=== PATIENT | female | born 1995 | race Caucasian/White ===

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

== ENCOUNTER 2018-02-17 08:16 | Emergency (ER) | payer OTHER ==
[~2018-02-17] VITALS: Ht 160 cm; Wt 62.1 kg
[2018-02-17 08:22] VITALS: BP 130/80
[2018-02-17] MEDS: hydrOXYzine HCL 25 MG TAB PO ONE (08:41)
[2018-02-17] MEDS: NEOMYCIN/POLYMYXIN/BACITRACIN 0.9 GM/1 PKT TP ONE (08:41)
[2018-02-17] MEDS: IBUPROFEN 600 MG TAB PO ONE (08:41)
[2018-02-17 09:24] VITALS: BP 130/80
== END 2018-02-17 09:25 | disposition home or self-care (01) ==
LOC: MED 08:16
DX: S90.821A Blister (nonthermal), right foot, initial encounter (principal); X58.XXXA Exposure to other specified factors, initial encounter; Y93.89 Activity, other specified; Y92.89 Other specified places as the place of occurrence of the external cause; Y99.8 Other external cause status
CPT/HCPCS: 90471; 90715; 99284

== ENCOUNTER 2018-11-11 20:44 | Emergency (ER) | payer OTHER ==
[~2018-11-11] VITALS: Ht 160 cm; Wt 94.8 kg
[2018-11-11 20:50] VITALS: BP 146/91
--- NOTE | 2018-11-11 22:47 | NUR ---
PT CAME TO ER C/O OF RASH SINCE SUNDAY. PER PT RASH STARTED IN INNER THIGHS AND SPREAD TO BACK OF LEGS. PT ALSO HAS RASH ON CHEST. PT HAS BEEN APPLYING CALADRYL LOTION TO RASH. PER PT NO PAIN 0/10 AND NO ITCHING. PT DENIED ANY CHANGES TO ENVIRONMENT. SAFETY MEASURES IN PLACE. WAITING FOR ERMD TO EVALUATE PT.
[2018-11-12 00:26] LABS: APPEARANCE,URINE CLOUDY (CLEAR); BILIRUBIN,URINE NEGATIVE (NEGATIVE); BLOOD, URINE TRACE-I (NEGATIVE); COLOR,URINE YELLOW (YELLOW); LEUKOCYTE ESTERASE ,URINE 3+ (NEGATIVE); NITRITE, URINE POSITIVE (NEGATIVE); UGLUCOSE NEGATIVE (NEGATIVE)
[2018-11-12 00:33] LABS: WBC,URINE TOO MANY TO COUNT /HPF (0-5)
[2018-11-12 01:27] VITALS: BP 122/68
--- NOTE | 2018-11-12 01:27 | NUR ---
DISCHARGE PAPERS GIVEN TO PT. RX OF HYDROCORTISONE, MACROBID, AND DIPHENHYDRAMINE GIVEN. SIDE EFFECTS EXPLAINED. INSTRUCTED TO F/U WITH PEDIATRITIAN, PIMARY CARE PROVIDER, AND WHEN TO RETURN TO ER. PT STATES NO COMPLAINTS AT THIS TIME. PT VERBALLIZED UNDERSTANDING OF DC INSTRUCTIONS. ALL QUESTIONS ANSWERED.
== END 2018-11-12 01:27 | disposition home or self-care (01) ==
LOC: MED 20:44
DX: O99.73 Diseases of the skin and subcutaneous tissue complicating the puerperium (principal); O86.20 Urinary tract infection following delivery, unspecified; L25.9 Unspecified contact dermatitis, unspecified cause
CPT/HCPCS: 81001; 81025; 87086; 87186; 99283

== ENCOUNTER 2019-02-14 09:38 | Emergency (ER) | payer OTHER ==
[~2019-02-14] VITALS: Ht 162.6 cm; Wt 64.4 kg
[2019-02-14 09:45] VITALS: BP 156/76
--- NOTE | 2019-02-14 09:46 | NUR ---
MOTHER IN BED 11 WITH CHILD
--- NOTE | 2019-02-14 09:50 | NUR ---
23/F BIBS. PRESENTED WITH COUGH, RUNNY NOSE X2. PT'S LUNGS ARE CLEAR, NO FEVER, NO CHILLS NO N/V REPORTED. PRODUCTIVE MOIST COUGH. NO ALCOHOL OR DRUGS. VSS. 3 MONTH OLD AT BEDSIDE. PMHX: DENIES RX:DENIES
[2019-02-14 10:09] VITALS: BP 156/76
--- NOTE | 2019-02-14 10:09 | NUR ---
Patient discharged with v/s stable. Written and verbal after care instructions given and explained. Patient alert, oriented and verbalized understanding of instructions. Ambulatory with steady gait. All questions addressed prior to discharge. ID band removed. Patient advised to follow up with PMD. Rx of MOTRIN AND ACETAMINOPHEN given. Patient educated on indication of medication including possible reaction and side effects. Opportunity to ask questions provided and answered.
== END 2019-02-14 10:09 | disposition home or self-care (01) ==
LOC: MED 09:38
DX: J06.9 Acute upper respiratory infection, unspecified (principal)
CPT/HCPCS: 99282

== ENCOUNTER 2022-10-18 04:30 | Emergency (ER) | payer OTHER ==
[~2022-10-18] VITALS: Ht 160 cm; Wt 89.8 kg
[2022-10-18 04:40] VITALS: BP 137/84; PULSE 77; RESP 16; TEMP 97.6; O2SAT 98
--- NOTE | 2022-10-18 04:40 | NUR ---
to bed ambulatory
[2022-10-18 04:50] VITALS: O2SAT 98
--- NOTE | 2022-10-18 04:51 | NUR ---
RECEIVED IN BED 12 WITH C/O BILADERAL FLANK PAIN X 2 HOURS. UNABLE TO GIVE UA AT THIS TIME
--- NOTE | 2022-10-18 05:05 | NUR ---
LABS DRAWN AND SENT TO LAB. PT STILL UNABLE TO PROVIDE URINE.
[2022-10-18 05:23] LABS: BASOPHILS # (AUTO) 0.1 K/uL (0.00-0.22); BASOPHILS % (AUTO) 0.5 % (0.0-2.0); EOSINOPHILS # (AUTO) 0.2 K/uL (0-0.4); EOSINOPHILS % (AUTO) 1.5 % (0.0-4.0); HEMATOCRIT 41.1 % (36-48); HEMOGLOBIN 13.6 g/dL (12.0-16.0); LYMPHOCYTES # (AUTO) 3.1 K/uL (2.5-16.5); LYMPHOCYTES % (AUTO) 25.3 % (20.5-51.1); MEAN CORPUSCULAR HEMOGLOBIN 28 pg (27-31); MEAN CORPUSCULAR HGB CONC 33 g/dL (33-37); MONOCYTES # (AUTO) 0.7 K/uL (0.8-1.0); MONOCYTES % (AUTO) 5.9 % (1.7-9.3); NEUTROPHILS # (AUTO) 8.3 K/uL (1.8-7.7); NEUTROPHILS % (AUTO) 66.8 % (42.2-75.2); PLATELET COUNT (AUTO) 333 K/uL (140-450); RED CELL DISTRIBUTION WIDTH 13.5 % (11.6-13.7); WHITE BLOOD COUNT (AUTO) 12.4 K/uL (4.8-10.8)
[2022-10-18 05:59] LABS: ALBUMIN 3.7 g/dL (3.4-5.0); ANION GAP 12.7 (8-16); CARBON DIOXIDE 27.9 mmol/L (21-32); CREATININE 0.8 mg/dL (0.6-1.3); POTASSIUM 3.6 mmol/L (3.5-5.1); TOTAL BILIRUBIN 0.1 mg/dL (0.0-1.0)
--- NOTE | 2022-10-18 05:59 | NUR ---
UA OBTAINED AND SENT TO LAB
[2022-10-18] MEDS ORDERED: FAMOTIDINE 20 MG TAB PO ONE (06:30)
[2022-10-18] MEDS ORDERED: ALUMINUM HYD/MAG/SIMETHICONE 30 ML UDC PO ONE (06:30)
[2022-10-18] MEDS ORDERED: ONDANSETRON 4 MG ODT PO ONE (06:30)
--- NOTE | 2022-10-18 06:41 | NUR ---
PT STATES"I'M JUST GOING TO LEAVE
[2022-10-18 07:44] LABS: APPEARANCE,URINE CLEAR (CLEAR); BILIRUBIN,URINE NEGATIVE (NEGATIVE); BLOOD, URINE NEGATIVE (NEGATIVE); COLOR,URINE YELLOW (YELLOW); LEUKOCYTE ESTERASE ,URINE 1+ (NEGATIVE); NITRITE, URINE NEGATIVE (NEGATIVE); UGLUCOSE NEGATIVE (NEGATIVE)
[2022-10-18 08:22] LABS: RBC,URINE 0-5 /HPF (0-5)
[2022-10-18] MEDS ORDERED: IBUP-2213 PO (15:08)
== END 2022-10-18 06:41 | disposition left against medical advice (07) ==
LOC: MED 04:30
DX: K80.50 Calculus of bile duct without cholangitis or cholecystitis without obstruction (principal); F12.90 Cannabis use, unspecified, uncomplicated; Z79.899 Other long term (current) drug therapy
CPT/HCPCS: 36415; 80053; 81001; 81025; 83690; 85025; 87086; 99284; Q0162

== ENCOUNTER 2022-10-18 12:39 | Emergency (ER) | payer OTHER ==
[~2022-10-18] VITALS: Ht 167.6 cm; Wt 93.9 kg
[2022-10-18 13:06] VITALS: BP 165/104; PULSE 86; RESP 18; TEMP 98.1; O2SAT 98
--- NOTE | 2022-10-18 13:12 | NUR ---
PT AMBULATED TO BED 9 FROM [facility]
--- NOTE | 2022-10-18 13:30 | NUR ---
md at bedside assessing pt
[2022-10-18] MEDS ORDERED: MORPHINE SULFATE 4 MG/ML SYR IVP ONE (13:55)
[2022-10-18] MEDS ORDERED: ONDANSETRON 4 MG/2 ML VIAL IVP ONE (13:55)
[2022-10-18] MEDS ORDERED: KETOROLAC 15 MG/ML VIAL IVP ONE (13:55)
--- NOTE | 2022-10-18 14:00 | NUR ---
Ultrasound at bedside.
[2022-10-18 14:16] LABS: BASOPHILS # (AUTO) 0.1 K/uL (0.00-0.22); BASOPHILS % (AUTO) 0.5 % (0.0-2.0); EOSINOPHILS # (AUTO) 0.1 K/uL (0-0.4); EOSINOPHILS % (AUTO) 1.1 % (0.0-4.0); HEMOGLOBIN 13.1 g/dL (12.0-16.0); LYMPHOCYTES # (AUTO) 2.1 K/uL (2.5-16.5); LYMPHOCYTES % (AUTO) 18.1 % (20.5-51.1); MEAN CORPUSCULAR HEMOGLOBIN 28 pg (27-31); MEAN CORPUSCULAR HGB CONC 34 g/dL (33-37); MEAN CORPUSCULAR VOLUME 83.5 fL (80-94); MONOCYTES # (AUTO) 0.5 K/uL (0.8-1.0); MONOCYTES % (AUTO) 4.5 % (1.7-9.3); NEUTROPHILS # (AUTO) 8.7 K/uL (1.8-7.7); NEUTROPHILS % (AUTO) 75.8 % (42.2-75.2); PLATELET COUNT (AUTO) 315 K/uL (140-450); RED BLOOD CELL COUNT(AUTO) 4.67 MIL/uL (4.20-5.40); RED CELL DISTRIBUTION WIDTH 13.5 % (11.6-13.7); WHITE BLOOD COUNT (AUTO) 11.4 K/uL (4.8-10.8)
--- NOTE | 2022-10-18 14:31 | NUR ---
pt medicated per MD orders. NKA verbalized. ASHWINR
[2022-10-18 14:34] LABS: ALBUMIN 3.7 g/dL (3.4-5.0); CREATININE 0.8 mg/dL (0.6-1.3); TOTAL BILIRUBIN 0.1 mg/dL (0.0-1.0)
[2022-10-18] MEDS ORDERED: IBUP-2213 PO (15:08)
--- NOTE | 2022-10-18 15:20 | NUR ---
IV removed, catheter intact and site benign. Applied folded 4x4 gauze and tape to stop bleeding.
[2022-10-18 15:35] VITALS: BP 165/104; PULSE 86; RESP 18; TEMP 98.1; O2SAT 98
== END 2022-10-18 15:30 | disposition home or self-care (01) ==
LOC: MED 12:39
DX: K80.50 Calculus of bile duct without cholangitis or cholecystitis without obstruction (principal); F12.90 Cannabis use, unspecified, uncomplicated; Z79.899 Other long term (current) drug therapy
CPT/HCPCS: 36415; 76705; 80053; 83690; 85025; 96374; 96375; 99285; J1885; J2270; J2405; Q0092

== ENCOUNTER 2022-10-20 15:30 | Inpatient (IN) | payer OTHER ==
[~2022-10-20] VITALS: Ht 160 cm; Wt 90.7 kg
[~2022-10-20 15:30] MED LIST: IBUP-2213 PO
[2022-10-20 15:38] VITALS: BP 131/80; PULSE 95; RESP 20; TEMP 99.1; O2SAT 100
--- NOTE | 2022-10-20 15:52 | NUR ---
PT AMBULATED TO BED 12
--- NOTE | 2022-10-20 16:07 | NUR ---
MED STUDENT YURIDIA AT BS EVALUATING PT.
[2022-10-20] MEDS ORDERED: MORPHINE SULFATE 4 MG/ML SYR IVP ONE ×2 (16:25)
[2022-10-20] MEDS ORDERED: NACL 0.9% 1,000 ML IV ONE (16:25)
[2022-10-20] MEDS ORDERED: ONDANSETRON 4 MG/2 ML VIAL IVP ONE ×2 (16:25)
[2022-10-20 17:25] LABS: HEMATOCRIT 40.3 % (36-48); HEMOGLOBIN 13.4 g/dL (12.0-16.0); MEAN CORPUSCULAR HEMOGLOBIN 28 pg (27-31); MEAN CORPUSCULAR HGB CONC 33 g/dL (33-37); MEAN CORPUSCULAR VOLUME 83.8 fL (80-94); PLATELET COUNT (AUTO) 291 K/uL (140-450); RED CELL DISTRIBUTION WIDTH 13.7 % (11.6-13.7); WHITE BLOOD COUNT (AUTO) 11.3 K/uL (4.8-10.8)
[2022-10-20 17:45] LABS: BASOPHILS % (MANUAL) 0 % (0-2); EOSINOPHILS % (MANUAL) 0 % (0-4); LYMPHOCYTES % (MANUAL) 4 % (20-46); MONOCYTES % (MANUAL) 4 % (5-12)
[2022-10-20 17:53] LABS: ALBUMIN 3.4 g/dL (3.4-5.0); CARBON DIOXIDE 25.7 mmol/L (21-32); CREATININE 0.7 mg/dL (0.6-1.3); POTASSIUM 3.7 mmol/L (3.5-5.1); TOTAL BILIRUBIN 0.6 mg/dL (0.0-1.0)
[2022-10-20] MEDS ORDERED: PIPERACILLIN/TAZOBACTAM 3.375 GM in DEXTROSE 5% 50 ML IV ONE (18:35)
--- NOTE | 2022-10-20 19:17 | NUR ---
AFRICA GUO FROM [facility] CALLED FOR UPDATED CLINICAL INFORMATION. INFORMED OF PT STATUS.
[2022-10-20] MEDS ORDERED: PIPERACILLIN/TAZOBACTAM 3.375 GM VIAL IV ONE (19:19)
--- NOTE | 2022-10-20 19:45 | NUR ---
ASSUMED CARE OF PT AT THIS TIME. PT IN POSITION OF COMFORT. PT UPDATED ON POC. AWAITING ADMISSION. PT A&OX4, RR EVEN AND UNLABORED. FAMILY AT BEDSIDE.
[2022-10-20] MEDS ORDERED: ONDANSETRON 4 MG/2 ML VIAL IVP PRN (20:20)
[2022-10-20] MEDS ORDERED: HYDROcodone/APAP 5/325 MG 1 TAB TAB PO PRN (20:20)
[2022-10-20] MEDS ORDERED: ACETAMINOPHEN 325 MG TAB PO PRN (20:20)
[2022-10-20] MEDS ORDERED: KCL 20 MEQ IN 100 mL PREMIX 200 ML IV PRN (20:20)
[2022-10-20] MEDS ORDERED: MORPHINE SULFATE 4 MG/ML SYR IVP PRN (20:20)
[2022-10-20] MEDS ORDERED: MAG SULF 2000 MG/WATER PREMIX 50 ML IV PRN (20:20)
[2022-10-20] MEDS ORDERED: LORazepam 1 MG TAB PO PRN (20:20)
[2022-10-20] MEDS ORDERED: MAGNESIUM OXIDE 400 MG TAB PO PRN (20:20)
[2022-10-20] MEDS ORDERED: POTASSIUM CHLORIDE 10 MEQ TABER PO PRN (20:20)
--- NOTE | 2022-10-20 20:47 | NUR ---
REPORT CALLED TO KAUSHAL MCCARTNEY WITH FULL RETURNED VERBAL UNDERSTANDING. PT GOING TO 124B
[2022-10-20 21:06] VITALS: PULSE 90; RESP 18; O2SAT 98
--- NOTE | 2022-10-20 21:06 | NUR ---
PT WAS ADMITTED TO [facility] DEPARTMENT FROM ER THRU [facility] WITH DIAGNOSIS OF ACUTE CHOLECYSTITIS. PT IS AOX4, AMBULATORY, ABLE TO VERBALIZE NEEDS AND ABLE TO FOLLOW COMMANDS. PT IS ON ROOM AIR AND ON NPO DIET. PT HAS IV PN LEFT AC GAUGE 20, SALINE LOCK. PT SKIN IS INTACT. PT DENIES PAIN AT THIS TIME. NO S/S OF RESPIRATORY DISTRESS NOTED. PT WAS ORIENTED TO ROOM/HOSPITAL, BED BUTTON AND CALL LIGHT. ALL SAFETY MEASURES IMPLEMENTED. BED IN LOW POSITION, BED WHEELS ON LOCK AND CALL LIGHT WITHIN REACH.
[2022-10-20] MEDS: DEXT 5% /NACL 0.9% 1,000 ML IV SCH (22:00)
[2022-10-20] MEDS: ZOLPIDEM 5 MG TAB PO PRN (22:03)
--- NOTE | 2022-10-20 22:03 | NUR ---
ALL SCHEDULED AND PRESCRIBED MEDICATION WAS GIVEN TO PT PER MD ORDER. PRN PAIN MEDICATION WAS ALSO GIVEN WITH STEPHANE. ALL SAFETY MEASURES IMPLEMENTED. BED IN LOW POSITION, BED WHEELS ON LOCK AND CALL LIGHT WITHIN REACH.
[2022-10-21] MEDS ORDERED: PIPERACILLIN/TAZOBACTAM 3.375 GM VIAL IV ONE ×2 (00:03→05:03)
[2022-10-21] MEDS: PIPERACILLIN/TAZOBACTAM 3.375 GM in DEXTROSE 5% 50 ML IV SCH ×4 (00:08→18:44)
--- NOTE | 2022-10-21 00:08 | NUR ---
SCHEDULED AND PRESCRIBED MEDICATION WAS GIVEN TO PT PER MD ORDER. ALL SAFETY MEASURES IMPLEMENTED. BED IN LOW POSITION, BED WHEELS ON LOCK AND CALL LIGHT WITHIN REACH.
--- NOTE | 2022-10-21 02:00 | NUR ---
PT IS ON SLEEP. CHEST RISE AND FALL SYMMETRICALLY NOTED. RESPIRATION IS EVEN AND UNLABORED. ALL SAFETY MEASURES IMPLEMENTED. BED IN LOW POSITION, BED WHEELS ON LOCK AND CALL LIGHT WITHIN REACH.
[2022-10-21 04:00] VITALS: BP 117/78; PULSE 74; RESP 18; TEMP 97.2; O2SAT 97
--- NOTE | 2022-10-21 04:00 | NUR ---
CHECKED THE PT, STILL ON SLEEP. CHEST RISE AND FALL SYMMETRICALLY NOTED. RESPIRATION IS EVEN AND UNLABORED. ALL SAFETY MEASURES IMPLEMENTED. BED WHEELS ON LOCK, BED IN LOW POSITION AND CALL LIGHT WITHIN REACH.
--- NOTE | 2022-10-21 05:14 | NUR ---
SCHEDULED AND PRESCRIBED MEDICATION WAS GIVEN TO PT PER MD ORDER. ALL SAFETY MEASURES IMPLEMENTED. BED WHEELS ON LOCK, BED IN LOW POSITION AND CALL LIGHT WITHIN REACH.
[2022-10-21 05:31] LABS: BASOPHILS % (AUTO) 0.2 % (0.0-2.0); EOSINOPHILS % (AUTO) 0.7 % (0.0-4.0); HEMATOCRIT 35.6 % (36-48); HEMOGLOBIN 12.2 g/dL (12.0-16.0); LYMPHOCYTES # (AUTO) 1.4 K/uL (2.5-16.5); LYMPHOCYTES % (AUTO) 17.9 % (20.5-51.1); MEAN CORPUSCULAR HEMOGLOBIN 29 pg (27-31); MEAN CORPUSCULAR HGB CONC 34 g/dL (33-37); MEAN CORPUSCULAR VOLUME 83.5 fL (80-94); MONOCYTES # (AUTO) 0.5 K/uL (0.8-1.0); MONOCYTES % (AUTO) 6.6 % (1.7-9.3); NEUTROPHILS # (AUTO) 5.7 K/uL (1.8-7.7); NEUTROPHILS % (AUTO) 74.6 % (42.2-75.2); PLATELET COUNT (AUTO) 241 K/uL (140-450); RED BLOOD CELL COUNT(AUTO) 4.26 MIL/uL (4.20-5.40); RED CELL DISTRIBUTION WIDTH 13.4 % (11.6-13.7); WHITE BLOOD COUNT (AUTO) 7.6 K/uL (4.8-10.8)
[2022-10-21 06:30] LABS: APPEARANCE,URINE HAZY (CLEAR); BILIRUBIN,URINE NEGATIVE (NEGATIVE); BLOOD, URINE NEGATIVE (NEGATIVE); COLOR,URINE YELLOW (YELLOW); LEUKOCYTE ESTERASE ,URINE TRACE (NEGATIVE); NITRITE, URINE NEGATIVE (NEGATIVE); UGLUCOSE NEGATIVE (NEGATIVE)
[2022-10-21 06:38] LABS: ALBUMIN 2.7 g/dL (3.4-5.0); ANION GAP 10.7 (8-16); CARBON DIOXIDE 26.2 mmol/L (21-32); MAGNESIUM 1.8 mg/dL (1.8-2.4); TOTAL BILIRUBIN 0.4 mg/dL (0.0-1.0)
[2022-10-21 07:10] LABS: RBC,URINE 0-5 /HPF (0-5)
[2022-10-21 07:10] LABS: CREATININE 0.8 mg/dL (0.6-1.3)
--- NOTE | 2022-10-21 07:10 | NUR ---
PT IS STABLE. ENDORSED PT TO MORNING SHIFT FOR CONTINUITY OF CARE.
[2022-10-21 07:11] LABS: YEAST,URINE Rare /HPF (None Seen)
[2022-10-21 07:13] LABS: POTASSIUM 2.9 mmol/L (3.5-5.1)
[2022-10-21 08:00] VITALS: BP 119/66; PULSE 57; PULSE 71; RESP 18; TEMP 97.6; O2SAT 99
[2022-10-21] MEDS: ZOLPIDEM 5 MG TAB PO PRN (11:26)
[2022-10-21] MEDS: DEXT 5% /NACL 0.9% 1,000 ML IV SCH ×2 (11:33→22:06)
[2022-10-21] MEDS ORDERED: FLUCONAZOLE 100 MG TAB PO SCH (14:19)
--- NOTE | 2022-10-21 18:00 | NUR ---
PT IS STILL AWAITING FOR HIDA SCAN.
--- NOTE | 2022-10-21 19:25 | NUR ---
ENDORSED TO NIGHT NURSE FOR CONTINUITY OF CARE. PT IS STILL AWAITING HIDA SCAN. PT IS AWAKE, PARTNER AT BEDSIDE, NO SIGNS OF DISTRESS. CALL LIGHT WITHIN REACH.
--- NOTE | 2022-10-21 19:26 | NUR ---
RECEIVED PT FROM MORNING SHIFT NURSE. PT IS AOX4, AMBULATORY, ABLE TO VERBALIZE NEEDS AND ABLE TO FOLLOW COMMANDS. PT IS ON ROOM AIR AND ON NPO DIET. PT HAS IV ON RIGHT AC GAUGE 20 RUNNING WITH D5NS AT 80 ML/HR. PT SKIN IS INTACT. NO COMPLAIN OF PAIN. NO S/S OF RESPIRATORY DISTRESS NOTED. ALL SAFETY MEASURES IMPLEMENTED. BED IN LOW POSITION, BED WHEELS ON LOCK AND CALL LIGHT WITHIN REACH.
[2022-10-21 20:00] VITALS: BP 133/88; PULSE 70; RESP 18; TEMP 97.6; O2SAT 99
--- NOTE | 2022-10-21 20:20 | NUR ---
PT WAS PICK-UP FOR THE HIDA SCAN. PT WAS ALSO MOVED TO ROOM 104B FOR THE ISOLATION/RADIATION DUE TO HIDA SCAN WITH ALL THE BELONGINGS.
--- NOTE | 2022-10-21 21:50 | NUR ---
PUT CAME BACK TO THE UNIT IN ROOM 104B AFTER DOING OF HIDA SCAN. NO COMPLAIN OF PAIN AND NO S/S OF RESPIRATORY DISTRESS NOTED. ALL SAFETY MEASURES IMPLEMENTED. BED IN LOW POSITION, BED WHEELS ON LOCK AND CALL LIGHT WITHIN REACH.
--- NOTE | 2022-10-21 22:05 | NUR ---
SCHEDULED AND PRESCRIBED MEDICATION WAS GIVEN TO PT PER MD ORDER. PT WAS ALSO GIVE K-RIDER DUE TO K LEVEL OF 2.9 ALL SAFETY MEASURES IMPLEMENTED. BED IN LOW POSITION, BED WHEELS ON LOCK AND CALL LIGHT WITHIN REACH.
[2022-10-22] MEDS: PIPERACILLIN/TAZOBACTAM 3.375 GM in DEXTROSE 5% 50 ML IV SCH ×3 (00:11→12:23)
--- NOTE | 2022-10-22 00:11 | NUR ---
SCHEDULED AND PRESCRIBED MEDICATION WAS GIVEN TO PT PER MD ORDER. ALL SAFETY MEASURES IMPLEMENTED. BED WHEELS ON LOCK AND CALL LIGHT WITHIN REACH.
--- NOTE | 2022-10-22 02:00 | NUR ---
PT IS ON SLEEP. CHEST RISE AND FALL SYMMETRICALLY NOTED. RESPIRATION IS EVEN AND UNLABORED. ALL SAFETY MEASURES IMPLEMENTED. BED IN LOW POSITON, BED WHEELS ON LOCK AND CALL LIGHT WITHIN REACH.
--- NOTE | 2022-10-22 04:00 | NUR ---
CHECKED THE PT, STILL ON SLEEP. CHEST RISE AND FALL SYMMETRICALLY NOTED. RESPIRATION IS EVEN AND UNLABORED. ALL SAFETY MEASURES IMPLEMENTED. BED IN LOW POSITION, BED WHEELS ON LOCK AND CALL LIGHT WITHIN REACH.
[2022-10-22 06:20] LABS: BASOPHILS % (AUTO) 0.3 % (0.0-2.0); EOSINOPHILS # (AUTO) 0.1 K/uL (0-0.4); EOSINOPHILS % (AUTO) 1.6 % (0.0-4.0); HEMATOCRIT 34.7 % (36-48); LYMPHOCYTES % (AUTO) 31.7 % (20.5-51.1); MEAN CORPUSCULAR HEMOGLOBIN 29 pg (27-31); MEAN CORPUSCULAR HGB CONC 34 g/dL (33-37); MEAN CORPUSCULAR VOLUME 82.9 fL (80-94); MONOCYTES # (AUTO) 0.6 K/uL (0.8-1.0); MONOCYTES % (AUTO) 8.8 % (1.7-9.3); NEUTROPHILS # (AUTO) 3.6 K/uL (1.8-7.7); NEUTROPHILS % (AUTO) 57.6 % (42.2-75.2); PLATELET COUNT (AUTO) 266 K/uL (140-450); RED BLOOD CELL COUNT(AUTO) 4.19 MIL/uL (4.20-5.40); RED CELL DISTRIBUTION WIDTH 13.4 % (11.6-13.7); WHITE BLOOD COUNT (AUTO) 6.2 K/uL (4.8-10.8)
[2022-10-22 06:34] LABS: ALBUMIN 2.9 g/dL (3.4-5.0); ANION GAP 10.2 (8-16); CARBON DIOXIDE 26.2 mmol/L (21-32); CREATININE 0.7 mg/dL (0.6-1.3); MAGNESIUM 2.1 mg/dL (1.8-2.4); POTASSIUM 3.4 mmol/L (3.5-5.1); TOTAL BILIRUBIN 0.2 mg/dL (0.0-1.0)
--- NOTE | 2022-10-22 07:32 | NUR ---
PT IS STABLE. ENDORSED PT TO [facility] PT ASSIGNMENT FOR CONTINUITY OF CARE.
--- NOTE | 2022-10-22 07:35 | NUR ---
RCEIVED PATIENT FROM [facility] NURSE FOR CONTINUATION OF CARE. PATIENT SEEN, STABLE, NO RESPIRATORY DISTRESS NOTICED.
[2022-10-22 08:00] VITALS: BP 117/67; PULSE 66; RESP 17; TEMP 97.6; O2SAT 100
--- NOTE | 2022-10-22 09:00 | NUR ---
PATIENT HAS BEEN SCREENED AND CATEGORIZED LOW NUTRITION RISK. PATIENT WILL BE SEEN WITHIN 7 DAYS OF ADMISSION. 10/20/22-10/27/[address]
[2022-10-22] MEDS ORDERED: TRAM50TA3 PO (09:56)
[2022-10-22] MEDS: DEXT 5% /NACL 0.9% 1,000 ML IV SCH (12:24)
[2022-10-22 15:47] VITALS: BP 117/67; PULSE 66; RESP 17; TEMP 97.6
== END 2022-10-22 16:10 | disposition home or self-care (01) ==
LOC: MED 15:30 → MMU 20:24 → MTU 20:40
PROVIDERS: ADMIT Internal Medicine; ATTEND Internal Medicine
DX: K80.42 Calculus of bile duct with acute cholecystitis without obstruction (principal); R74.01 Elevation of levels of liver transaminase levels; Z20.822 Contact with and (suspected) exposure to COVID-19; Z79.1 Long term (current) use of non-steroidal anti-inflammatories (NSAID)
CPT/HCPCS: 36415; 76705; 78445; 80053; 81001; 83690; 83735; 85025; 86140; 87081; 96361; 96365; 96375; 99285; A9510; J1644; J2270; J2405; J2543; J3480; J7060; Q0092

== ENCOUNTER 2023-04-25 13:45 | Emergency (ER) | payer OTHER ==
[~2023-04-25] VITALS: Ht 160 cm; Wt 91.2 kg
[~2023-04-25 13:45] MED LIST changes: -IBUP-2213 PO; +TRAM50TA3 PO
[2023-04-25 13:51] VITALS: BP 148/98; PULSE 100; RESP 17; TEMP 99.1; O2SAT 97
[2023-04-25] MEDS ORDERED: NAPR-1704 PO (15:40)
[2023-04-25] MEDS ORDERED: KETOROLAC 30 MG/ML VIAL IM ONE (15:40)
== END 2023-04-25 16:35 | disposition home or self-care (01) ==
LOC: MED 13:45
DX: D16.22 Benign neoplasm of long bones of left lower limb (principal); Z79.899 Other long term (current) drug therapy; Z79.1 Long term (current) use of non-steroidal anti-inflammatories (NSAID)
CPT/HCPCS: 73562; 81025; 96372; 99283; J1885

== ENCOUNTER 2023-06-15 19:50 | Emergency (ER) | payer OTHER ==
[~2023-06-15] VITALS: Ht 160 cm; Wt 90.7 kg
[~2023-06-15 19:50] MED LIST changes: +NAPR-1704 PO
[2023-06-15 19:55] VITALS: BP 128/84; PULSE 94; RESP 17; TEMP 98.4; O2SAT 98
[2023-06-15 22:13] LABS: APPEARANCE,URINE HAZY (CLEAR); BILIRUBIN,URINE NEGATIVE (NEGATIVE); BLOOD, URINE NEGATIVE (NEGATIVE); COLOR,URINE YELLOW (YELLOW); LEUKOCYTE ESTERASE ,URINE NEGATIVE (NEGATIVE); NITRITE, URINE NEGATIVE (NEGATIVE); PH,URINE 6.5 (5.0-9.0); PROTEIN,URINE NEGATIVE (NEGATIVE); UGLUCOSE NEGATIVE (NEGATIVE)
[2023-06-15 22:38] LABS: BACTERIA,URINE 1+ /HPF (None Seen); MUCUS,URINE 1+ /LPF (None Seen); RBC,URINE 0-5 /HPF (0-5); WBC,URINE 0-5 /HPF (0-5)
[2023-06-15] MEDS ORDERED: NITR100C7 PO (22:43)
[2023-06-16] MEDS ORDERED: NAPR-54 PO (23:34)
[2023-06-16] MEDS ORDERED: BEN10 PO (23:34)
== END 2023-06-15 22:47 | disposition home or self-care (01) ==
LOC: MED 19:50
DX: N30.00 Acute cystitis without hematuria (principal); Z79.899 Other long term (current) drug therapy
CPT/HCPCS: 81001; 81025; 99283

== ENCOUNTER 2023-06-16 21:45 | Emergency (ER) | payer OTHER ==
[~2023-06-16] VITALS: Ht 160 cm; Wt 93.9 kg
[~2023-06-16 21:45] MED LIST changes: +NITR100C7 PO
[2023-06-16 21:55] VITALS: BP 137/81; PULSE 77; RESP 20; TEMP 101.4; O2SAT 98
[2023-06-16] MEDS: ONDANSETRON 4 MG/2 ML VIAL IVP ONE (22:38)
[2023-06-16] MEDS: KETOROLAC 30 MG/ML VIAL IVP ONE (22:40)
[2023-06-16 22:43] LABS: BASOPHILS % (AUTO) 0.5 % (0.0-2.0); EOSINOPHILS # (AUTO) 0.2 K/uL (0-0.4); EOSINOPHILS % (AUTO) 2.6 % (0.0-4.0); HEMATOCRIT 35.9 % (36-48); HEMOGLOBIN 12.4 g/dL (12.0-16.0); LYMPHOCYTES # (AUTO) 1.9 K/uL (2.5-16.5); LYMPHOCYTES % (AUTO) 23.2 % (20.5-51.1); MEAN CORPUSCULAR HEMOGLOBIN 28 pg (27-31); MEAN CORPUSCULAR HGB CONC 35 g/dL (33-37); MONOCYTES # (AUTO) 0.7 K/uL (0.8-1.0); MONOCYTES % (AUTO) 8.7 % (1.7-9.3); NEUTROPHILS # (AUTO) 5.4 K/uL (1.8-7.7); PLATELET COUNT (AUTO) 335 K/uL (140-450); RED BLOOD CELL COUNT(AUTO) 4.38 MIL/uL (4.20-5.40); RED CELL DISTRIBUTION WIDTH 13.1 % (11.6-13.7); WHITE BLOOD COUNT (AUTO) 8.2 K/uL (4.8-10.8)
[2023-06-16 22:53] LABS: ANION GAP 11.5 (8-16); CALCIUM 8.3 mg/dL (8.5-10.1); CARBON DIOXIDE 25.1 mmol/L (21-32); CREATININE 0.8 mg/dL (0.6-1.3); POTASSIUM 3.6 mmol/L (3.5-5.1)
[2023-06-16 23:05] LABS: APPEARANCE,URINE CLEAR (CLEAR); BILIRUBIN,URINE NEGATIVE (NEGATIVE); BLOOD, URINE TRACE-I (NEGATIVE); COLOR,URINE YELLOW (YELLOW); LEUKOCYTE ESTERASE ,URINE NEGATIVE (NEGATIVE); NITRITE, URINE NEGATIVE (NEGATIVE); PROTEIN,URINE NEGATIVE (NEGATIVE); UGLUCOSE NEGATIVE (NEGATIVE); UROBILINOGEN,URINE 0.2 EU/dL (0.2 - 1)
[2023-06-16 23:06] LABS: BILIRUBIN,DIRECT 0.1 mg/dL (0.0-0.3); TOTAL BILIRUBIN 0.2 mg/dL (0.0-1.0)
[2023-06-16 23:25] LABS: BACTERIA,URINE 1+ /HPF (None Seen); RBC,URINE 0-5 /HPF (0-5); WBC,URINE 0-5 /HPF (0-5)
[2023-06-16] MEDS ORDERED: BEN10 PO (23:34)
[2023-06-16] MEDS ORDERED: NAPR-54 PO (23:34)
[2023-06-16] MEDS ORDERED: cefTRIAXone 1,000 MG VIAL ONE (23:45)
[2023-06-17] MEDS: cefTRIAXone 1,000 MG VIAL ONE (00:07)
[2023-06-17 00:36] VITALS: BP 116/58; PULSE 89; RESP 17; TEMP 98.1; O2SAT 99
== END 2023-06-17 00:36 | disposition home or self-care (01) ==
LOC: MED 21:45
DX: R82.71 Bacteriuria (principal); R59.0 Localized enlarged lymph nodes; R50.9 Fever, unspecified; Z79.899 Other long term (current) drug therapy
CPT/HCPCS: 36415; 74176; 80048; 80076; 81001; 81025; 83690; 84703; 85025; 96365; 96375; 99285; J0696; J1885; J2405

== ENCOUNTER 2024-01-23 15:12 | Emergency (ER) | payer OTHER ==
[~2024-01-23] VITALS: Ht 160 cm; Wt 90.0 kg
[~2024-01-23 15:12] MED LIST changes: +BEN10 PO; +NAPR-337 PO
[2024-01-23 15:36] VITALS: BP 141/89; PULSE 93; RESP 20; TEMP 98.2; O2SAT 100
[2024-01-23 16:09] LABS: BASOPHILS % (AUTO) 0.3 % (0.0-2.0); EOSINOPHILS % (AUTO) 0.4 % (0.0-4.0); HEMATOCRIT 39.9 % (36-48); HEMOGLOBIN 13.3 g/dL (12.0-16.0); LYMPHOCYTES # (AUTO) 1.5 K/uL (2.5-16.5); LYMPHOCYTES % (AUTO) 12.6 % (20.5-51.1); MEAN CORPUSCULAR HEMOGLOBIN 27 pg (27-31); MEAN CORPUSCULAR HGB CONC 33 g/dL (33-37); MEAN CORPUSCULAR VOLUME 82.4 fL (80-94); MONOCYTES # (AUTO) 0.4 K/uL (0.8-1.0); MONOCYTES % (AUTO) 3.5 % (1.7-9.3); NEUTROPHILS # (AUTO) 10.1 K/uL (1.8-7.7); NEUTROPHILS % (AUTO) 83.2 % (42.2-75.2); PLATELET COUNT (AUTO) 343 K/uL (140-450); RED BLOOD CELL COUNT(AUTO) 4.84 MIL/uL (4.20-5.40); WHITE BLOOD COUNT (AUTO) 12.2 K/uL (4.8-10.8)
[2024-01-23 16:19] LABS: ANION GAP 11.9 (8-16); CALCIUM 8.6 mg/dL (8.5-10.1); CARBON DIOXIDE 28.8 mmol/L (21-32); CREATININE 0.9 mg/dL (0.6-1.3); POTASSIUM 3.7 mmol/L (3.5-5.1)
[2024-01-23] MEDS: NACL 0.9% 1,000 ML IV SCH (16:23)
[2024-01-23] MEDS: ONDANSETRON 4 MG/2 ML VIAL IVP ONE (16:24)
[2024-01-23 16:30] LABS: ALBUMIN 3.6 g/dL (3.4-5.0); BILIRUBIN,DIRECT 0.1 mg/dL (0.0-0.3); TOTAL BILIRUBIN 0.3 mg/dL (0.0-1.0); TOTAL PROTEIN, SERUM 7.4 g/dL (6.4-8.2)
[2024-01-23] MEDS ORDERED: ONDA-188 PO (17:47)
[2024-01-23] MEDS ORDERED: NAPR-1704 PO (17:47)
[2024-01-23] MEDS: KETOROLAC 30 MG/ML VIAL IVP ONE (17:53)
[2024-01-23 18:07] VITALS: BP 119/73; PULSE 85; RESP 18; TEMP 98.2; O2SAT 100
== END 2024-01-23 18:06 | disposition home or self-care (01) ==
LOC: MED 15:12
DX: K80.20 Calculus of gallbladder without cholecystitis without obstruction (principal); K21.9 Gastro-esophageal reflux disease without esophagitis; F12.90 Cannabis use, unspecified, uncomplicated; Z71.6 Tobacco abuse counseling; Z79.899 Other long term (current) drug therapy
CPT/HCPCS: 36415; 80048; 80076; 81025; 83690; 85025; 96361; 96374; 96375; 99285; J1885; J2405; J7030